=== PATIENT | female | born 1970 | race Caucasian/White ===

== ENCOUNTER 2021-02-12 17:24 | Emergency (ER) | payer BC, OTHER ==
[2021-02-12 18:35] LABS: HEMOGLOBIN 13.7 gm/dl (12.3-15.3); RED BLOOD COUNT 4.46 M/UL (4.00-5.10); WHITE BLOOD COUNT 16.6 K/UL (4.5-11.0)
[2021-02-12 19:00] LABS: BUN/CREATININE RATIO 19 (0-10)
== END 2021-02-13 02:05 | disposition home or self-care (01) ==
LOC: ER1 17:24
PROVIDERS: Physician Assistant
DX: R21 Rash and other nonspecific skin eruption (principal); R06.02 Shortness of breath; R07.9 Chest pain, unspecified; R11.0 Nausea; T50.B95A Adverse effect of other viral vaccines, initial encounter
CPT/HCPCS: 71045; 80053; 82550; 82553; 83520; 83735; 83874; 84484; 84702; 85025; 85379; 93005; 96374; 96375; 99285; J1200; J2930

== ENCOUNTER 2021-02-17 13:09 | Emergency (ER) | payer BC, OTHER ==
[2021-02-17 13:56] LABS: HEMOGLOBIN 14.4 gm/dl (12.3-15.3); RED BLOOD COUNT 4.59 M/UL (4.00-5.10); WHITE BLOOD COUNT 11.8 K/UL (4.5-11.0)
[2021-02-17 14:22] LABS: BUN/CREATININE RATIO 13 (0-10)
[2021-02-17] MEDS ORDERED: PHENERGAN 25 MG25 M1 PO (16:09)
[2021-02-17] MEDS ORDERED: EPIPEN 2-P0.3 MG/0.3 INJ (16:09)
== END 2021-02-17 15:44 | disposition home or self-care (01) ==
LOC: ER1 13:09
PROVIDERS: Emergency Medicine
DX: T78.40XA Allergy, unspecified, initial encounter (principal); R06.02 Shortness of breath; J39.2 Other diseases of pharynx; K21.9 Gastro-esophageal reflux disease without esophagitis
CPT/HCPCS: 70450; 80053; 85025; 96374; 99284; J2550